=== PATIENT | female | born 1995 | race Caucasian/White ===

== ENCOUNTER 2020-03-15 09:21 | Emergency (ER) | payer OTHER, SELFPAY ==
[2020-03-15 09:38] VITALS: BP 129/77; PULSE 110; RESP 16; TEMP 36.4; O2SAT 100
--- NOTE | 2020-03-15 09:50 | ED.GENADULT ---
HPI - General Adult General Chief complaint: Allergic Reaction Stated complaint: Allergic Reaction Time Seen by Provider: 03/15/20 09:50 Source: patient Mode of arrival: ambulatory Limitations: no limitations History of Present Illness HPI narrative: 25-year-old female patient presents to the [facility] with complaints of a rash that started this morning when she woke up. Patient states that she ended up eating at [employer] last night and went to bed with no issues. Patient states that she woke up with a full body rash that feels like it is burning. Patient states that while she was waiting in the exam room for the provider to come and she also feels like now her tongue is swelling and feels some tingliness to the tongue. Patient states that she did take 50 mg of Benadryl this morning about 7 AM which has not improved her symptoms at all. Patient denies any chest pain or shortness of breath at this time. Denies any new soaps, lotions, detergents. Denies any food allergies that she is aware of. Related Data Home Medications Medication Instructions Recorded Confirmed methylphenidate HCl 20 mg BID 03/15/20 03/15/20 Allergies Allergy/AdvReac Type Severity Reaction Status Date / Time codeine Allergy Unknown Nausea and Verified 05/06/18 16:02 Vomiting sulfamethoxazole Allergy Unknown Anaphylactic Verified 05/06/18 16:02 Shock trimethoprim Allergy Unknown Anaphylactic Verified 05/06/18 16:02 Shock Review of Systems Review of Systems: Narrative: CONSTITUTIONAL: Denies fever, chills, or sweats. EYES: Denies visual changes, redness, or discharge. ENT: Denies rhinorrhea, congestion, sore throat, or otalgia. CARDIOVASCULAR: Denies chest pain, palpitations, or edema. RESPIRATORY: Denies cough or dyspnea. GASTROINTESTINAL: Denies abdominal pain, nausea, vomiting, or diarrhea. GENITOURINARY: Denies dysuria or hematuria. SKIN: Positive rash or itching. MUSCULOSKELETAL: Denies back pain, joint pain, or myalgia. NEUROLOGIC: Denies headache, numbness, or weakness. PSYCHIATRIC: Denies anxiety or depression. PMFSH Social History Social History Gender identity (if verbalized by the patient): Female Exam Narrative: Exam Narrative: GENERAL: Well-appearing, well-nourished, and in no acute distress. HEAD: Normocephalic, atraumatic. EYES: PERRLA and EOMI. ENT: Nares clear, no rhinorrhea or epistaxis. Mucous membranes moist. Posterior pharynx with no erythema or tonsillar enlargement. Patient tolerating secretions well. NECK: Supple. No lymphadenopathy CHEST: Clear to auscultation. No respiratory distress. Patient able talk in clear complete sentences. No tripoding noted. HEART: Regular rate and rhythm. No murmur heard. Normal peripheral pulses. ABDOMEN: Soft, nontender, nondistended, normal active bowel sounds. EXTREMITIES: Normal range of motion. No edema. SKIN: Patient has splotchy flat hive-like rash noted to her body from her neck, chest, bilateral arms and bilateral leg as well as the trunk. No obvious rash noted to the back or face. NEURO: No focal deficits. Alert and oriented x3. Course Vital Signs Vital signs: Vital Signs Temperature 36.4 C L 03/15/20 09:38 Pulse Rate 110 H 03/15/20 09:38 Respiratory Rate 16 03/15/20 09:38 Blood Pressure 129/77 03/15/20 09:38 Pulse Oximetry 100 03/15/20 09:38 Temperature 36.4 C L 03/15/20 09:38 Pulse Rate 110 H 03/15/20 09:38 Respiratory Rate 16 03/15/20 09:38 Blood Pressure 129/77 03/15/20 09:38 Pulse Oximetry 100 03/15/20 09:38 Vital signs reviewed. Transfer Transfered to: [facility] Transfer rationale: Allergic reaction Accepting physician: Dr. Mona Youssef Transfer comments: Called and spoke with Dr. Mona Youssef at [facility] and gave her report on patient that has a full body rash that started this morning with no improvement after taking 50 of Benadryl. Discussed with her chung
[2020-03-15] MEDS: EPINEPHrine HCL INJ 1 MG/ML AMPUL 0.3 MG IM (09:58)
[2020-03-15 10:05] VITALS: BP 130/75; PULSE 113; RESP 20; TEMP 36.6; O2SAT 100
--- NOTE | 2020-03-15 10:05 | PC.NURSE ---
called report to Celina CHENEY [facility] appropriate paperwork signed Care transfered to [facility]
== END 2020-03-15 10:07 | disposition short-term general hospital (02) ==
PROVIDERS: Emergency Provider Nurse Practitioner Family; PCP Physician Assistant
DX: L50.0 Allergic urticaria (principal); R22.0 Localized swelling, mass and lump, head; T78.40XA Allergy, unspecified, initial encounter; X58.XXXA Exposure to other specified factors, initial encounter
CPT/HCPCS: 96372; 99215; G0463; J0171

== ENCOUNTER 2020-03-15 10:29 | Emergency (ER) | payer OTHER, SELFPAY ==
[2020-03-15 10:25] VITALS: BP 133/62; PULSE 96; RESP 18; TEMP 36.4; O2SAT 100
--- NOTE | 2020-03-15 10:46 | PC.NURSE ---
EMS attempted IV access x 1, this nurse attempted x 2, charge nurse attempted x 1 and unsuccessful. Will attempt US IV when available.
--- NOTE | 2020-03-15 11:14 | ED.ALLEREA ---
HPI - Allergic Reaction General Chief complaint: Allergic Reaction <JEWELL Mandujano Last Filed: 03/15/20 14:25> Stated complaint: allergic reaction sent from [facility] <JEWELL Mandujano Last Filed: 03/15/20 14:25> Time Seen by Provider: 03/15/20 10:48 <JEWELL Mandujano Last Filed: 03/15/20 14:25> Source: patient <JEWELL Mandujano Last Filed: 03/15/20 14:25> Mode of arrival: ambulatory <JEWELL Mandujano Last Filed: 03/15/20 14:25> Limitations: no limitations <JEWELL Mandujano Last Filed: 03/15/20 14:25> History of Present Illness HPI narrative: This is a 25-year-old female that presents the emergency department for rash since this morning. Reports she woke up around 7 and was going to take the dog outside. Reports she started to note a burning/itching rash to her chest. Reports she took 100 mg of Benadryl. Reports the rash continued to spread to her back, upper arms and thighs. Reports she was seen in urgent care for this and given epi after she started to feel short of breath and like her tongue was swelling. Reports relief of shortness of breath. Reports continued rash and burning. Denies fever. <JEWELL Mandujano Last Filed: 03/15/20 14:25> Related Data Home medications: Home Medications Medication Instructions Recorded Confirmed doxycycline hyclate 03/15/20 methylphenidate HCl 20 mg BID 03/15/20 03/15/20 <JEWELL Mandujano Last Filed: 03/15/20 14:25> Allergies/adverse reactions: Allergies Allergy/AdvReac Type Severity Reaction Status Date / Time codeine Allergy Unknown Nausea and Verified 05/06/18 16:02 Vomiting sulfamethoxazole Allergy Unknown Anaphylactic Verified 05/06/18 16:02 Shock trimethoprim Allergy Unknown Anaphylactic Verified 05/06/18 16:02 Shock vancomycin Allergy Anaphylactic Verified 03/15/20 10:43 Shock <JEWELL Mandujano Last Filed: 03/15/20 14:25> Review of Systems Review of Systems: Narrative: CONSTITUTIONAL: Denies fever RESPIRATORY: Denies dyspnea. GASTROINTESTINAL: Denies abdominal pain, vomiting SKIN: Reports rash and itching. <Melody Chapin PA-C - Last Filed: 03/15/20 14:25> All systems reviewed & are unremarkable except as noted in HPI and below <Melody Chapin PA-C - Last Filed: 03/15/20 14:25> PMFSH Past Medical History Medical History: Medical History (Updated 03/15/20 @ 13:49 by Melody Chapin PA-C) Pseudotumor cerebri <Melody Chapin PA-C - Last Filed: 03/15/20 14:25> Social History Social History: Social History (Updated 03/15/20 @ 11:16 by Meldoy Chapin PA-C) Smoking status: Never smoker Substance use: never Gender identity (if verbalized by the patient): Female <Melody Chapin PA-C - Last Filed: 03/15/20 14:25> Exam Narrative: Exam Narrative: GENERAL: Well-appearing, well-nourished, and in no acute distress. HEAD: Normocephalic, atraumatic. EYES: EOMI. ENT: Nares clear, no rhinorrhea or epistaxis. Mucous membranes moist. Oropharynx without tonsillar hypertrophy exudate or other lesions. NECK: Supple. No adenopathy or masses. CHEST: Clear to auscultation. No respiratory distress. No wheezes rales or rhonchi HEART: Regular rate and rhythm. No murmur heard. Normal peripheral pulses. EXTREMITIES: Normal range of motion. No edema. SKIN: Warm, dry. Erythematous, blanching patches present on the chest, back, upper arms and thighs NEURO: No focal deficits. Alert and oriented x3. PSYCH: Normal mood and affect <Melody Chapin PA-C - Last Filed: 03/15/20 14:25> Course Vital Signs Vital signs: Vital Signs Temperature 97.5 F L 03/15/20 10:25 Pulse Rate 96 03/15/20 10:25 Respiratory Rate 18 03/15/20 10:25 Blood Pressure 133/62 03/15/20 10:25 Pulse Oximetry 100 03/15/20 10:25 Temperature 97.5 F L 03/15/20 10:25 Pulse Rate 90 03/15/20 14:14 Respiratory
[2020-03-15 11:50] VITALS: BP 119/84; PULSE 93; RESP 18; O2SAT 98
[2020-03-15] MEDS: FAMOTIDINE 20 MG/2 ML VIAL IV PUSH (12:10)
[2020-03-15] MEDS: methylPREDNISolone SOD SUCC 125 MG VIAL IV PUSH (12:11)
[2020-03-15 12:57] VITALS: BP 123/80; PULSE 83; RESP 18; O2SAT 100
[2020-03-15 14:14] VITALS: BP 120/89; PULSE 90; RESP 19; O2SAT 99
== END 2020-03-15 14:39 | disposition home or self-care (01) ==
PROVIDERS: Emergency Provider General Practice; PCP Physician Assistant
DX: R21 Rash and other nonspecific skin eruption (principal)
CPT/HCPCS: 96374; 96375; 99284; J2930